=== PATIENT | female | born 1975 | race Caucasian/White ===

== ENCOUNTER 2019-02-22 01:40 | Emergency (ER) | payer OTHER ==
[~2019-02-22] VITALS: Ht 167.6 cm; Wt 90.7 kg
[2019-02-22 01:50] VITALS: BP 124/69
--- NOTE | 2019-02-22 01:50 | NUR ---
TO BED #06 AMBULATORY
--- NOTE | 2019-02-22 01:59 | NUR ---
Dr. Plascencia evaluating patient at bedside.
[2019-02-22] MEDS ORDERED: NACL 0.9% 1,000 ML IV ONE (02:04)
[2019-02-22] MEDS ORDERED: METOCLOPRAMIDE 10 MG/2 ML INJ VIAL IVP ONE (02:05)
[2019-02-22] MEDS ORDERED: diphenhydrAMINE 50 MG/ML VIAL IVP ONE (02:05)
--- NOTE | 2019-02-22 02:10 | NUR ---
MEDICATED , PER ERMDS ORDER, PATIENT TOLERATED WELL.
--- NOTE | 2019-02-22 03:00 | NUR ---
DIPTI RE EVALUATED THE PATIENT AND FOR DISCHARGE, CALLED UP
[2019-02-22 03:18] VITALS: BP 128/80
--- NOTE | 2019-02-22 03:18 | NUR ---
Patient discharged with v/s stable. Written and verbal after care instructions given and explained. Patient alert, oriented and verbalized understanding of instructions. Ambulatory with steady gait. All questions addressed prior to discharge. ID band removed. Patient advised to follow up with PMD. Rx of CIPRO 500MG, NORCO 5 MG-325MG given. Patient educated on indication of medication including possible reaction and side effects. Opportunity to ask questions provided and answered.
== END 2019-02-22 03:18 | disposition home or self-care (01) ==
LOC: MED 01:40
DX: N39.0 Urinary tract infection, site not specified (principal); R51 Headache; R07.0 Pain in throat; F17.210 Nicotine dependence, cigarettes, uncomplicated; Z79.1 Long term (current) use of non-steroidal anti-inflammatories (NSAID)
CPT/HCPCS: 81002; 96374; 96375; 99283; J1200; J2765; J7030

== ENCOUNTER 2019-10-22 11:07 | Emergency (ER) | payer OTHER ==
[~2019-10-22] VITALS: Ht 165.1 cm; Wt 88.5 kg
[2019-10-22 11:13] VITALS: BP 157/92
--- NOTE | 2019-10-22 11:20 | NUR ---
PT AMBULATED TO ED BED 02
--- NOTE | 2019-10-22 11:26 | NUR ---
44/F C/O BILATERAL FOOT PAIN/DISCOMFORTX 5 DAYS AND BLE SWELLING X 3 DAYS. BLE 2+ PITTING EDEMA. DENIES SOB. 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 STATE WOKE UP ONE MORNING WITH THE SWELLING, DENIES LEGS BEING NORMALLY SWOLLEN. NOTED WITH REDNESS TO BLE, L>Beata BARBER AT THIS TIME. DENIES PMH Addendum: 10/22/19 at 1132 by YOLIS STATES HEAVINESS TO BLE.
--- NOTE | 2019-10-22 11:37 | NUR ---
DR. DOWNS EVALUATING PT AT BEDSIDE.
[2019-10-22] MEDS ORDERED: KETOROLAC 30 MG/ML VIAL IM ONE (11:50)
--- NOTE | 2019-10-22 11:51 | NUR ---
XRAY AT BEDSIDE
[2019-10-22 12:14] LABS: BASOPHILS # (AUTO) 0.1 K/uL (0.00-0.22); BASOPHILS % (AUTO) 0.7 % (0.0-2.0); EOSINOPHILS # (AUTO) 0.4 K/uL (0-0.4); EOSINOPHILS % (AUTO) 3.2 % (0.0-4.0); HEMATOCRIT 39.7 % (36-48); HEMOGLOBIN 13.3 g/dL (12.0-16.0); LYMPHOCYTES # (AUTO) 4.8 K/uL (2.5-16.5); LYMPHOCYTES % (AUTO) 37.6 % (20.5-51.1); MEAN CORPUSCULAR HEMOGLOBIN 30 pg (27-31); MEAN CORPUSCULAR HGB CONC 34 g/dL (33-37); MEAN CORPUSCULAR VOLUME 89.7 fL (80-94); MONOCYTES % (AUTO) 7.7 % (1.7-9.3); NEUTROPHILS # (AUTO) 6.5 K/uL (1.8-7.7); NEUTROPHILS % (AUTO) 50.8 % (42.2-75.2); PLATELET COUNT (AUTO) 317 K/uL (140-450); RED BLOOD CELL COUNT(AUTO) 4.42 MIL/uL (4.20-5.40); WHITE BLOOD COUNT (AUTO) 12.8 K/uL (4.8-10.8)
[2019-10-22 12:23] LABS: ANION GAP 12.2 (8-16); CARBON DIOXIDE 26.7 mmol/L (21-32); CREATININE 0.9 mg/dL (0.6-1.3); POTASSIUM 3.9 mmol/L (3.5-5.1)
[2019-10-22 12:35] LABS: ALBUMIN 3.4 g/dL (3.4-5.0); TOTAL BILIRUBIN 0.1 mg/dL (0.0-1.0)
[2019-10-22 12:54] VITALS: BP 122/71
== END 2019-10-22 12:54 | disposition home or self-care (01) ==
LOC: MED 11:07
DX: R60.0 Localized edema (principal); G43.909 Migraine, unspecified, not intractable, without status migrainosus
CPT/HCPCS: 36415; 71045; 80053; 83880; 85025; 96372; 99284; J1885; Q0092

== ENCOUNTER 2020-07-27 18:27 | Emergency (ER) | payer OTHER ==
[~2020-07-27] VITALS: Ht 167.6 cm; Wt 91.6 kg
[2020-07-27 18:31] VITALS: BP 138/97
[2020-07-27] MEDS ORDERED: KETOROLAC 60 MG/2 ML VIAL IM ONE (18:45)
[2020-07-27] MEDS ORDERED: methocarbamoL 500 MG TAB PO SCH (18:45)
[2020-07-27] MEDS ORDERED: CRUSHER, PILL MC ONE (19:22)
[2020-07-27] MEDS ORDERED: MORPHINE SULFATE 4 MG/ML SYR IM ONE (19:50)
[2020-07-27] MEDS ORDERED: ONDANSETRON 4 MG ODT ONE (19:58)
[2020-07-27] MEDS ORDERED: ONDANSETRON 4 MG ODT PO ONE (20:00)
[2020-07-27 21:38] VITALS: BP 132/89
== END 2020-07-27 21:39 | disposition home or self-care (01) ==
LOC: MED 18:27
DX: M54.5 Low back pain (principal); F17.210 Nicotine dependence, cigarettes, uncomplicated; Z71.6 Tobacco abuse counseling; Z98.890 Other specified postprocedural states
CPT/HCPCS: 72110; 96372; 99284; J1885; J2270; Q0162

== ENCOUNTER 2021-09-25 08:01 | Inpatient (IN) | payer OTHER, SELFPAY ==
[~2021-09-25] VITALS: Ht 162.6 cm; Wt 88.6 kg
[2021-09-25 08:07] VITALS: BP 116/78
--- NOTE | 2021-09-25 08:12 | NUR ---
PATIENT AMBULATED TO BED 8.
[2021-09-25] MEDS ORDERED: KETOROLAC 15 MG/ML VIAL IVP ONE (08:40)
[2021-09-25] MEDS ORDERED: NACL 0.9% 1,000 ML IV ONE ×2 (08:40→09:40)
--- NOTE | 2021-09-25 08:40 | NUR ---
46 Y/O F HERE WITH R LEG REDNESS AND SWELLING. HER PAIN IS 4/10 WHEN AT REST BUT MORE WHEN STANDING OR WALKING.
--- NOTE | 2021-09-25 08:47 | NUR ---
PATIENT GOING TO ULTRASOUND VIA WHEELCHAIR.
--- NOTE | 2021-09-25 09:04 | NUR ---
PATIENT BACK FROM XRAY.
[2021-09-25 09:29] LABS: HEMATOCRIT 38.7 % (36-48); HEMOGLOBIN 13.2 g/dL (12.0-16.0); MEAN CORPUSCULAR HEMOGLOBIN 30 pg (27-31); MEAN CORPUSCULAR HGB CONC 34 g/dL (33-37); MEAN CORPUSCULAR VOLUME 87.6 fL (80-94); PLATELET COUNT (AUTO) 396 K/uL (140-450); RED BLOOD CELL COUNT(AUTO) 4.41 MIL/uL (4.20-5.40); RED CELL DISTRIBUTION WIDTH 13.1 % (11.6-13.7); WHITE BLOOD COUNT (AUTO) 14.9 K/uL (4.8-10.8)
[2021-09-25] MEDS ORDERED: VANCOMYCIN 1,000 MG in DEXTROSE 5% 250 ML IV ONE (09:40)
[2021-09-25] MEDS ORDERED: CEFEPIME 1,000 MG in DEXTROSE 5% 50 ML IV ONE (09:40)
[2021-09-25] MEDS ORDERED: CEFEPIME 1,000 MG VIAL ONE (09:45)
[2021-09-25] MEDS ORDERED: VANCOMYCIN 1,000 MG VIAL ONE (09:46)
[2021-09-25 09:48] LABS: EOSINOPHILS % (MANUAL) 1 % (0-4); LYMPHOCYTES % (MANUAL) 23 % (20-46); MONOCYTES % (MANUAL) 4 % (5-12)
[2021-09-25 10:25] LABS: ANION GAP 12.7 (8-16); CARBON DIOXIDE 26.7 mmol/L (21-32); CREATININE 0.9 mg/dL (0.6-1.3); POTASSIUM 3.4 mmol/L (3.5-5.1)
[2021-09-25] MEDS ORDERED: PAX10 PO (10:49)
[2021-09-25] MEDS ORDERED: CLON1TAB PO (10:49)
[2021-09-25] MEDS ORDERED: ACETAMINOPHEN 325 MG TAB PO PRN (10:55)
[2021-09-25] MEDS ORDERED: VANCOMYCIN PER PHARMACY MC PRN (10:55)
[2021-09-25] MEDS ORDERED: MAG SULF 2000 MG/WATER PREMIX 50 ML IV PRN (10:55)
[2021-09-25] MEDS ORDERED: KCL 20 MEQ/WATER INJ PREMIX 200 ML IV PRN (10:55)
[2021-09-25] MEDS ORDERED: POTASSIUM CHLORIDE 10 MEQ TABER PO PRN (10:55)
[2021-09-25] MEDS ORDERED: ONDANSETRON 4 MG/2 ML VIAL IVP PRN (10:55)
[2021-09-25] MEDS ORDERED: MAGNESIUM OXIDE 400 MG TAB PO PRN (10:55)
--- NOTE | 2021-09-25 11:06 | NUR ---
RAZA SWAB WAS DONE AND TAKEN TO THE LAB.
--- NOTE | 2021-09-25 11:07 | NUR ---
46 Y/O FEMALE C/O RIGHT LOWER LEG REDNESS & SWELLING X 4 DAYS. DENIES FEVER/CHILLS. DENIES N/V/D. ON ASSESSMENT NOTED REDNESS AND SWELLING TO RLE, WARM TO TOUCH. NO DISCHARGE. PMH: HTN NKA
--- NOTE | 2021-09-25 12:00 | NUR ---
PATIENT EATING LUNCH, DAUGHTHER AT BEDSIDE.
[2021-09-25] MEDS ORDERED: cefTRIAXone 1,000 MG VIAL ONE (12:36)
--- NOTE | 2021-09-25 12:40 | NUR ---
URINE COLLECTED AT THIS TIME AND SENT TO LAB
--- NOTE | 2021-09-25 13:25 | NUR ---
GAVE REPORT TO ANA ROSA LIU FOR PENDING ADMISSION. ETA 10MINUTES.
[2021-09-25] MEDS ORDERED: HYDROXYZINE HYDROCHLORIDE 10 MG TAB PO ONE (13:35)
[2021-09-25 13:45] VITALS: BP 101/56
--- NOTE | 2021-09-25 13:45 | NUR ---
PT ARRIVED FROM THE ED BY WHEELCHAIR WITH DAUGHTER AT BEDSIDE. PT CRYING REPORTING SEVERE MIGRAINE. UPON LOOKING AT EMAR, MD ORDERED MEDICATION, MAVERICK MEDICATION ADMINISTERED PER MD ORDER. ALL ADMISSION QUESTIONS ASKED. PT IS ALERT AND ORIENTED X4. PT IS ON ROOM AIR WITH CHEST RISING AND FALLING EVEN AND UNLABORED, LUNGS CLEAR. PT VITAL SIGNS TAKEN AND ARE STABLE. PT RIGHT LOWER EXTREMITY HAS ERYTHEMA, WARMTH, AND SWELLING. NO OPEN WOUNDS. PT HAS A LEFT AC 30 G SALINE LOCK THAT IS PATENT AND INTACT. PT EDUCATED ON SAFETY MEASURES AND CALL LIGHT WHICH IS IN REACH. WILL CONTINUE TO MONITOR.
--- NOTE | 2021-09-25 13:47 | NUR ---
Patient will be admitted to care of DR. MCARTHUR. Admited to [facility]. Will go to room 119. Belongings list completed. Report to ANA ROSA LIU.
--- NOTE | 2021-09-25 14:09 | NUR ---
MRSA SWAB HAS BEEN COLLECTED AND SENT TO LAB
--- NOTE | 2021-09-25 15:52 | NUR ---
PT RESTING IN BED WITH NO ACUTE S/S OF DISTRESS. ALL SAFETY MEASURES IN PLACE, CALL LIGHT WITHIN REACH. WILL CONTINUE TO MONITOR.
[2021-09-25 16:00] VITALS: BP 106/68
[2021-09-25 16:35] LABS: BARBITURATE, URINE NEGATIVE ng/ml (NEG <=200); BENZODIAZEPINE, URINE NEGATIVE ng/mL (NEG <=200); COCAINE, URINE NEGATIVE ng/mL (NEG <=300)
[2021-09-25 16:36] LABS: CANNABINOID, URINE POSITIVE ng/mL (NEG <=50); OPIATE, URINE POSITIVE ng/mL (NEG <=2000); PHENCYCLIDINE SCREEN,URINE NEGATIVE ng/mL (NEG <=25)
[2021-09-25] MEDS ORDERED: SUMAtriptan succinate 25 MG TAB PO PRN (17:05)
--- NOTE | 2021-09-25 18:01 | NUR ---
The patient's care was reviewed and supervised by Amie Ball RN.
--- NOTE | 2021-09-25 18:28 | NUR ---
PT RESTING IN BED WITH NO ACUTE S/S OF DISTRESS. ALL SAFETY MEASURES IN PLACE, CALL LIGHT WITHIN REACH. WILL CONTINUE TO MONITOR.
--- NOTE | 2021-09-25 18:40 | NUR ---
ALL NEEDS HAVE BEEN MET THROUGHOUT SHIFT. PT REMAINED STABLE. PT WILL BE ENDORSED TO SENIOR RELIABILITY ENGINEER NURSE.
--- NOTE | 2021-09-25 19:10 | NUR ---
RECEIVED REPORT FROM MORNING SHIFT FOR CONTINUITY OF CARE. PATIENT IS STABLE IN BED. A&OX4. VERBALLY RESPONSIVE AND ABLE TO COMMUNICATE NEEDS. DENIES PAIN AT THIS TIME. NO APPARENT S/SX OF ACUTE DISTRESS. RESPIRATIONS EVEN AND UNLABORED. ON RA WITH AN O2 SAT OF 98%. LEFT AC 20G SL PATENT/INTACT. PATIENT IS CONTINENT. PLAN OF CARE AND WHITE COMMUNICATION BOARD UPDATED. BED IN LOW/LOCKED POSITION. CALL LIGHT WITHIN REACH. ENCOURAGE PATIENT TO CALL FOR ANY NEEDS/ASSISTANCE. WILL CONTINUE TO MONITOR.
--- NOTE | 2021-09-25 20:00 | NUR ---
Patient's Plan of Care was discussed and reviewed with JONATAN WORTHINGTON.
--- NOTE | 2021-09-25 21:10 | NUR ---
PATIENT VERBALIZED SHE DOES NOT FEEL COMFORTABLE. PROVIDED PILLOWS AND REPOSITIONED FOR COMFORT. PATIENT VERBALIZED SHE FEELS MUCH BETTER. PATIENT DENIES PAIN AT THIS TIME. RESPIRATIONS EVEN AND UNLABORED. NO APPARENT S/SX OF ACUTE DISTRESS. WHITE BOARD COMMUNICATION UPDATED. ALL SAFETY MEASURES IN PLACE. CALL LIGHT WITHIN REACH. WILL CONTINUE TO MONITOR.
[2021-09-25] MEDS ORDERED: VANCOMYCIN 1,000 MG in DEXTROSE 5% 250 ML IV SCH (22:00)
[2021-09-25] MEDS ORDERED: ceFAZolin 1,000 MG VIAL ONE (22:29)
--- NOTE | 2021-09-25 23:10 | NUR ---
CHECKED PATIENT. STABLE AND ASLEEP IN RIGHT SIDE-LYING POSITION. CHEST RISING AND FALLING. RESPIRATIONS EVEN AND UNLABORED. NO APPARENT S/SX OF ACUTE DISTRESS. WHITE BOARD COMMUNICATION UPDATED. ALL SAFETY MEASURES IN PLACE. CALL LIGHT WITHIN REACH. WILL CONTINUE TO MONITOR.
--- NOTE | 2021-09-26 01:10 | NUR ---
ROUNDED ON PATIENT. STABLE AND ASLEEP. CHEST RISING AND FALLING. RESPIRATIONS EVEN AND UNLABORED. NO APPARENT S/SX OF ACUTE DISTRESS. WHITE BOARD COMMUNICATION UPDATED. ALL SAFETY MEASURES IN PLACE. CALL LIGHT WITHIN REACH. WILL CONTINUE TO MONITOR.
--- NOTE | 2021-09-26 03:10 | NUR ---
CHECKED PATIENT. STABLE AND ASLEEP. CHEST RISING AND FALLING. RESPIRATIONS EVEN AND UNLABORED. NO APPARENT S/SX OF ACUTE DISTRESS. WHITE BOARD COMMUNICATION UPDATED. ALL SAFETY MEASURES IN PLACE. CALL LIGHT WITHIN REACH. WILL CONTINUE TO MONITOR.
[2021-09-26 04:00] VITALS: BP 120/66
[2021-09-26 05:54] LABS: BASOPHILS % (AUTO) 0.3 % (0.0-2.0); EOSINOPHILS # (AUTO) 0.3 K/uL (0-0.4); EOSINOPHILS % (AUTO) 2.2 % (0.0-4.0); HEMATOCRIT 36.4 % (36-48); HEMOGLOBIN 12.2 g/dL (12.0-16.0); LYMPHOCYTES # (AUTO) 3.1 K/uL (2.5-16.5); LYMPHOCYTES % (AUTO) 26.3 % (20.5-51.1); MEAN CORPUSCULAR HEMOGLOBIN 30 pg (27-31); MEAN CORPUSCULAR HGB CONC 34 g/dL (33-37); MEAN CORPUSCULAR VOLUME 88.2 fL (80-94); MONOCYTES % (AUTO) 8.3 % (1.7-9.3); NEUTROPHILS # (AUTO) 7.4 K/uL (1.8-7.7); NEUTROPHILS % (AUTO) 62.9 % (42.2-75.2); PLATELET COUNT (AUTO) 358 K/uL (140-450); RED BLOOD CELL COUNT(AUTO) 4.13 MIL/uL (4.20-5.40); RED CELL DISTRIBUTION WIDTH 13.4 % (11.6-13.7); WHITE BLOOD COUNT (AUTO) 11.8 K/uL (4.8-10.8)
[2021-09-26 06:17] LABS: ALBUMIN 2.4 g/dL (3.4-5.0); ANION GAP 12.1 (8-16); CARBON DIOXIDE 26.2 mmol/L (21-32); CREATININE 0.8 mg/dL (0.6-1.3); MAGNESIUM 2.1 mg/dL (1.8-2.4); POTASSIUM 3.3 mmol/L (3.5-5.1); TOTAL BILIRUBIN 0.3 mg/dL (0.0-1.0)
[2021-09-26 06:18] LABS: CHOL/HDL RATIO 7.1 (1-4.5)
--- NOTE | 2021-09-26 07:05 | NUR ---
ENDORSED PATIENT TO MORNING SHIFT FOR CONTINUITY OF CARE. PATIENT IS STABLE.
--- NOTE | 2021-09-26 07:10 | NUR ---
RECEIVED REPORT FROM VENETIAN BLIND WORKER NURSE FOR CONTINUITY OF CARE. PT STABLE. NO S/S OF DISTRESS. BREATHING SYMMETRICAL. CALL LIGHT IN REACH. ALL SAFETY MEASURES IN PLACE.
--- NOTE | 2021-09-26 08:00 | NUR ---
PT ASSISTED TO RESTROOM. PT TRANSPORTED TO IMAGING. ALL SAFETY MEASURES IN PLACE Addendum: 09/26/21 at 1059 by Erika Lanier RN RN PT REFUSED BED ARAMBULA AND BEDSIDE COMMODE
--- NOTE | 2021-09-26 08:13 | NUR ---
PATIENT HAS BEEN SCREENED AND CATEGORIZED LOW NUTRITION RISK. PATIENT WILL BE SEEN WITHIN 7 DAYS OF ADMISSION. 10/01/[address]
--- NOTE | 2021-09-26 09:00 | NUR ---
PT TRANSPORTED BACK TO [facility]. PT INSTRUCTED TO DRINK 2-3 CUPS OF WATER BEFORE NEXT SET OF IMAGES. CALL LIGHT IN REACH. ALL SAFETY MEASURES IN PLACE.
[2021-09-26] MEDS: ENOXAPARIN 40 MG/0.4 ML SYR SUBQ SCH (09:24)
--- NOTE | 2021-09-26 10:57 | NUR ---
PT TRANSPORTED BACK TO IMAGING. NO S/S OF DISTRESS. ALL SAFETY MEASURES IN PLACE.
--- NOTE | 2021-09-26 11:49 | NUR ---
PT RETURNED TO [facility]. PT RESTING IN BED. PT STABLE. CALL LIGHT IN REACH. ALL SAFETY MEASURES IN PLACE. PT REPORTS PAIN IN RLE 06/13. WILL MEDICATE AND REASSESS Addendum: 09/26/21 at 1324 by Erika Lanier RN RN RETURNED TO MEDICATE PT FOR PAIN. PT SLEEPING, NO MEDICATION GIVEN.
[2021-09-26 12:00] VITALS: BP 117/57
--- NOTE | 2021-09-26 13:23 | NUR ---
PT AWAKE. PT STABLE. NO S/S OF DISTRESS. BREATHING SYMMETRICAL. CALL LIGHT IN REACH. ALL SAFETY MEASURES IN PLACE. PT PAIN REDUCED WITHOUT MEDICATION. 03/13
--- NOTE | 2021-09-26 15:36 | NUR ---
PT RESTING IN BED, EYES CLOSED. NO S/S OF DISTRESS. BREATHING SYMMETRICAL. CALL LIGHT IN REACH. ALL SAFETY MEASURES IN PLACE.
[2021-09-26 16:00] VITALS: BP 116/60
--- NOTE | 2021-09-26 17:27 | NUR ---
PT RESTING IN BED, EYES CLOSED. NO S/S OF DISTRESS. BREATHING SYMMETRICAL. CALL LIGHT IN REACH. ALL SAFETY MEASURES IN PLACE. IV SALINE LOCKED
[2021-09-26] MEDS: HYDROcodone/APAP 5/325 MG 1 TAB TAB PO PRN (17:51)
--- NOTE | 2021-09-26 17:51 | NUR ---
PT STATED EXPERIENCING PAIN 6/10 IN RLE. PT STABLE. ASSISTED PT TO RESTROOM . PT MEDICATED PER MD ORDERS. PT VERBALIZED UNDERSTANDING OF EDUCATION. CALL LIGHT IN REACH. ALL SAFETY MEASURES IN PLACE. FAMILY AT BEDSIDE
--- NOTE | 2021-09-26 18:37 | NUR ---
PT RESTING IN BED. FAMILY AT BEDSIDE. DINNER AT BEDSIDE. NO S/S OF DISTRESS. BREATHING SYMMETRICAL. CALL LIGHT IN REACH. ALL SAFETY MEASURES IN PLACE.
--- NOTE | 2021-09-26 20:00 | NUR ---
PATIENT RECEIVED IN BED ASLEEP, NO DISTRESS. RN DID NOT BOTHER TO WAKE HER UP.
--- NOTE | 2021-09-26 21:00 | NUR ---
DUE IV ATB MEDICATION WAS GIVEN TOLERATING WELL.
[2021-09-27] VITALS: BP 94/66
--- NOTE | 2021-09-27 | NUR ---
PATIENT WAS CALMLY ASLEEP
--- NOTE | 2021-09-27 04:48 | NUR ---
PATIENT COMPLAINT OF ANXIETY ATTACK. BUT, PATIENT HAS NO PRN ANTI ANXIETY. RN EXPLAINED TO THE PATIENT THAT HE STILL NEEDS TO CALL THE M.D TO GET AN ORDER OF AN ANTI ANXIETY MEDICATION. RN CALLED THE OUT OF OFFICE HOUR EXCHANGE. PROMISE TO PAGE DR. OSBORNE THE COVERING MD FOR DR. MARTEL. STILL WAITING FOR CALL BACK.
--- NOTE | 2021-09-27 04:54 | NUR ---
DUE IV ATB ADMINISTERED, TOLERATING WELL.
[2021-09-27] MEDS ORDERED: ALPRAZolam 0.25 MG TAB PO ONE (05:40)
[2021-09-27] MEDS: HYDROcodone/APAP 5/325 MG 1 TAB TAB PO PRN ×2 (07:40→23:04)
--- NOTE | 2021-09-27 07:43 | NUR ---
09/26/211999 REVIEWED, WILL CONTINUE WITH CURRENT PLAN OF CARE. MNURALD
--- NOTE | 2021-09-27 07:55 | NUR ---
Patient awake, alert and had complaints of pain, anxiety. Medication administered, see chart.
[2021-09-27 08:00] VITALS: BP 106/56
[2021-09-27] MEDS ORDERED: ALPRAZolam 0.25 MG TAB ONE (08:05)
[2021-09-27] MEDS: ENOXAPARIN 40 MG/0.4 ML SYR SUBQ SCH (08:12)
[2021-09-27 09:34] LABS: BASOPHILS # (AUTO) 0.1 K/uL (0.00-0.22); BASOPHILS % (AUTO) 0.4 % (0.0-2.0); EOSINOPHILS # (AUTO) 0.3 K/uL (0-0.4); EOSINOPHILS % (AUTO) 2.3 % (0.0-4.0); HEMATOCRIT 34.7 % (36-48); HEMOGLOBIN 11.8 g/dL (12.0-16.0); LYMPHOCYTES % (AUTO) 28.2 % (20.5-51.1); MEAN CORPUSCULAR HEMOGLOBIN 30 pg (27-31); MEAN CORPUSCULAR HGB CONC 34 g/dL (33-37); MEAN CORPUSCULAR VOLUME 87.5 fL (80-94); MONOCYTES # (AUTO) 1.1 K/uL (0.8-1.0); MONOCYTES % (AUTO) 7.9 % (1.7-9.3); NEUTROPHILS # (AUTO) 8.6 K/uL (1.8-7.7); NEUTROPHILS % (AUTO) 61.2 % (42.2-75.2); PLATELET COUNT (AUTO) 387 K/uL (140-450); RED BLOOD CELL COUNT(AUTO) 3.96 MIL/uL (4.20-5.40); RED CELL DISTRIBUTION WIDTH 13.2 % (11.6-13.7); WHITE BLOOD COUNT (AUTO) 14.1 K/uL (4.8-10.8)
[2021-09-27 09:52] LABS: ALBUMIN 2.3 g/dL (3.4-5.0); ANION GAP 12.7 (8-16); CREATININE 0.7 mg/dL (0.6-1.3); MAGNESIUM 2.3 mg/dL (1.8-2.4); POTASSIUM 3.7 mmol/L (3.5-5.1); TOTAL BILIRUBIN 0.2 mg/dL (0.0-1.0)
--- NOTE | 2021-09-27 14:06 | NUR ---
DC PLANNING: THE PATIENT ADMITTED FROM HOME THROUGH THE ER WITH C/O RIGHT LEG REDNESS AND SWELLING X 1 WEEK. IMAGING RULED OUT OSTEOMYELITIS AND CONFIRMED CELLULITIS. THE PATIENT WAS STARTED ON IV ABX, ID WAS CONSULTED FOR MANAGEMENT. MARY SPOKE WITH THE PATIENT AT BEDSIDE, CONFIRMED THAT SHE LIVES IN A SINGLE STORY HOUSE WITH FRIENDS AND IS INDEPENDENT IN ALL ACTIVITIES. SHE HAS NO H/O HOME HEALTH OR DME USE AND IS EMPLOYED. THE PATIENT SEES HER PCP REGULARLY AND DOES INTEND TO FOLLOW UP WITH HIM IN THE NEXT WEEK. THE DISCHARGE PLAN IS FOR THE PATIENT TO RETURN HOME WHEN CLINICALLY STABLE, POSSIBLY TOMORROW PER THE ATTENDING MD. MARY WILL FOLLOW FOR NEEDS. Addendum: 09/27/21 at 1708 by Marleen Barkley CM DC PLANNING PATIENT IS A 46-YEAR-OLD FEMALE ADMITTED IN THE [facility]/ED ON 09/25/2021 DUE TO MIGRAINE HEADACHES SINCE 09/21/2021 AND INFECTED BLISTER ON RIGTH FOOT. DAPHNE MET WITH PATIENT AND HER ADULT DAUGHTER PAPO BRYANT AT BEDSIDE TO DISCUSS AND GATHER HER COLLATERAL INFORMATION. PATIENT REPORTED LIVING AT HOME WITH SOME ROOMMATES AND STATED THAT HER DAUGHTER PAPO AND HER SISTER AMIRAH JOHNSTON ARE HER EMERGENCY CONTACTS. PER PATIENT SHE DO NOT HAVE ADVANCE DIRECTIVES, AND PATIENT WAS INTERESTED ON A.D. INF. PACKET PROVIDED BY DURING THE VISIT. PATIENT REPORTED NOT HAVING ANY ISSUES GETTING OR TAKING HER MEDICATIONS FROM THE [facility] IN [place]. PATIENT STATED NOT HAVING OR NEEDING DME AT HOME AND BEEN ACTIVE AND INDEPENDENT AT HOME. PATIENT HAVING A GOOD RELATIONSHIP WITH HER PCP. DAPHNE INFORMED PATIENT ABOUT HER ALREADY SCHEDULED APPOINTMENT MADE BY THESE CAKE WRAPPER. PATIENT AGREED TO ATTEND TO HER FOLLOW UP APPOINTMENT WITH LAURENCE LARRY ON 10/04/2021 AT 10;45AM. DAPHNE DISCUSSED WITH PT. THE IMPORTANCE OF FOLLOWING UP WITH HER SCHEDULED APPOINTMENT. PATIENT AGREED TO ATTEND AND REPORTED TO DAPHNE THAT SHE WILL BE ASSISTED BY HER DAUGHTER OR SISTER WITH TRANSPORTATION BACK HOME WHEN SHE IS READY TO DC FROM [facility]. DAPHNE THANK HER FOR THE INF. AND LEFT HER ROOM. SW WILL FOLLOW UP NEEDED. Addendum: 09/27/21 at 1751 by Marleen Barkley CM DC PLANNING DAPHNE CALLED PATIENT'S PCP OFFICE AT AND SPOKE TO MIYA TO SCHEDULED A FOLLOW UP APPOINTMENT FOR PATIENT AFTER DC FROM [facility]. MIYA SCHEDULED PATIENT'S FOLLOW UP APPOINTMENT FOR 10/04/2021 AT 10:45 AM WITH MD LAURENCE EDMONDSON. DAPHNE MET WITH PATIENT AT BEDSIDE AND PROVIDED HER WITH HER APPOINTMENT INFORMATION SCHEDULED FOR 10/04/2021. DAPHNE HANDED APPOINTMENT NOTE TO PATIENT WITH ADDRESS, DATE AND TIME OF APPOINTMENT. PATIENT WAS AWAKE AND ALERT AND THANK THESE CAKE WRAPPER FOR THE INFORMATION.
[2021-09-27 16:00] VITALS: BP 111/46
--- NOTE | 2021-09-27 19:40 | NUR ---
RECD REPORT FROM CHARGE NURSE PARTHA. PATIENT IS RESTING IN BED, AWAKE, A/OX4. RESPIRATION EVEN AND UNLABORED. RIGHT LOWER EXTREMITY WITH REDNESS AND SWELLING, ELEVATED ON A PILLOW. SKIN IS WARM AND INTACT. ABLE TO AMBULATE TO THE BR. ON IV ANTIBIOTICS. MEDICATIONS FOR THE NIGHT DISCUSSED WITH PATIENT. VERBALIZED UNDERSTANDING. PAIN IN THE RIGHT LE, 1, STATED TOLERABLE. WILL CONTINUE TO MONITOR AND MEDICATE PER MD ORDER.
--- NOTE | 2021-09-27 19:45 | NUR ---
Patient's Plan of Care was discussed and reviewed with JONATAN PACE.
--- NOTE | 2021-09-27 21:00 | NUR ---
RESTING IN BED, RESPIRATION EVEN AND UNLABORED. REQUEST FOR SNACK FOR THE NIGHT GIVEN.
--- NOTE | 2021-09-27 22:30 | NUR ---
ASSISTED OUT OF BED TO GO TO THE BR TO VOID, BACK TO BED AFTER VOIDING. WITH DIFFICULTY AMBULATING DUE TO THE SWOLLEN RIGHT LOWER EXTREMITY.
[2021-09-28] VITALS: BP 106/65
--- NOTE | 2021-09-28 00:30 | NUR ---
SLEEPING COMFORTABLY IN BED. RESPIRATION EVEN AND UNLABORED.
--- NOTE | 2021-09-28 01:40 | NUR ---
ENDORSED TO ANA ROSA LEA FOR CONTINUITY OF CARE.
--- NOTE | 2021-09-28 01:41 | NUR ---
RECEIVED REPORT FROM JG. PATIENT OBSERVED LAYING IN BED APPEARS TO BE ASLEEP. CHEST RISE AND FALL NOTED. NO S/SX OF RESP DISTRESS ON RA. PT DX R LEG CELLULITIS. WILL ASSESS AT LATER TIME WHEN PT IS AWAKE. PER REPORT PT WITH R LEG EDEMA AND REDNESS BUT SKIN INTACT. IV ON LAC 20G TKO. PT AMBULATORY W/ ASSIST. PT ON IV ABX ANCEF Q8H. PT IS ON STANDARD ISOLATION. CALL LIGHT IS WITHIN REACH. WILL CONTINUE TO MONITOR.
[2021-09-28 04:00] VITALS: BP 124/66
--- NOTE | 2021-09-28 04:00 | NUR ---
VITAL SIGNS ARE WITHIN NORMAL LIMITS. ALL SAFETY MEASURES ARE IN PLACE. WILL CONTINUE TO MONITOR.
[2021-09-28 07:08] LABS: ALBUMIN 2.4 g/dL (3.4-5.0); ANION GAP 13.2 (8-16); CARBON DIOXIDE 26.5 mmol/L (21-32); CREATININE 0.7 mg/dL (0.6-1.3); MAGNESIUM 2.4 mg/dL (1.8-2.4); POTASSIUM 3.7 mmol/L (3.5-5.1); TOTAL BILIRUBIN 0.1 mg/dL (0.0-1.0)
--- NOTE | 2021-09-28 07:17 | NUR ---
GAVE BEDSIDE REPORT TO DAY RN. PT ENDORSED IN STABLE CONDITION.
[2021-09-28 07:19] LABS: BASOPHILS # (AUTO) 0.1 K/uL (0.00-0.22); BASOPHILS % (AUTO) 0.5 % (0.0-2.0); EOSINOPHILS # (AUTO) 0.4 K/uL (0-0.4); EOSINOPHILS % (AUTO) 2.8 % (0.0-4.0); HEMATOCRIT 35.3 % (36-48); LYMPHOCYTES # (AUTO) 4.1 K/uL (2.5-16.5); LYMPHOCYTES % (AUTO) 30.3 % (20.5-51.1); MEAN CORPUSCULAR HEMOGLOBIN 30 pg (27-31); MEAN CORPUSCULAR HGB CONC 34 g/dL (33-37); MEAN CORPUSCULAR VOLUME 87.7 fL (80-94); MONOCYTES % (AUTO) 7.2 % (1.7-9.3); NEUTROPHILS # (AUTO) 8.1 K/uL (1.8-7.7); NEUTROPHILS % (AUTO) 59.2 % (42.2-75.2); PLATELET COUNT (AUTO) 433 K/uL (140-450); RED BLOOD CELL COUNT(AUTO) 4.02 MIL/uL (4.20-5.40); WHITE BLOOD COUNT (AUTO) 13.7 K/uL (4.8-10.8)
--- NOTE | 2021-09-28 07:47 | NUR ---
Patient awake, alert and oriented. Continues to have swelling and redness to right lower extremity. Safety co measures in place and patient has no further needs.
[2021-09-28] MEDS ORDERED: CEPH-588 PO (08:35)
[2021-09-28] MEDS: ENOXAPARIN 40 MG/0.4 ML SYR SUBQ SCH (08:36)
[2021-09-28 08:47] VITALS: BP 109/59
--- NOTE | 2021-09-28 10:00 | NUR ---
Patient discharged and was given information on medications, follow ups and when to come back to hospital if she has increased pain, swelling, redness and tenderness to right foot that worsens. All questions regarding discharge answered.
== END 2021-09-28 11:05 | disposition home or self-care (01) | DRG 383 ==
LOC: MED 08:01 → MMU 11:53 → MTU 13:23
PROVIDERS: ADMIT Internal Medicine; ATTEND Internal Medicine
DX: L03.115 Cellulitis of right lower limb (principal); E44.1 Mild protein-calorie malnutrition; F15.90 Other stimulant use, unspecified, uncomplicated; F12.90 Cannabis use, unspecified, uncomplicated; G43.909 Migraine, unspecified, not intractable, without status migrainosus; Z20.822 Contact with and (suspected) exposure to COVID-19; Z68.33 Body mass index [BMI] 33.0-33.9, adult
CPT/HCPCS: 36415; 73590; 78300; 80048; 80053; 80202; 80305; 81025; 83036; 83735; 85025; 85651; 86140; 87040; 87081; 96361; 96365; 96367; 96375; 97163-GP; 97530; 99285; A9503; J0690; J0692; J0696; J1650; J1885; J3370; J7060

== ENCOUNTER 2021-10-04 21:01 | Emergency (ER) | payer OTHER, SELFPAY ==
[~2021-10-04 21:01] MED LIST: CEPH-588 PO; CLON1TAB PO; PAX10 PO
--- NOTE | 2021-10-04 21:05 | NUR ---
patient called to triage no response PATIENT LEFT WITHOUT BEING SEEN BY DR. FONG. NO FURTHER CARE PROVIDED FOR PATIENT.
--- NOTE | 2021-10-04 21:15 | NUR ---
CALLED FOR THE SECOND TIME, NO RESPONSE
--- NOTE | 2021-10-04 21:25 | NUR ---
CALLED FOR THE THIRD TIME , NO RESPONSE
== END 2021-10-04 21:05 | disposition left against medical advice (07) ==
LOC: MED 21:01
DX: Z53.21 Procedure and treatment not carried out due to patient leaving prior to being seen by health care provider (principal)

== ENCOUNTER 2021-10-12 15:20 | Emergency (ER) | payer OTHER, SELFPAY ==
[~2021-10-12] VITALS: Ht 165.1 cm; Wt 85.7 kg
[2021-10-12 15:36] VITALS: BP 136/90
--- NOTE | 2021-10-12 15:41 | NUR ---
PT AMB TO BED 8.
--- NOTE | 2021-10-12 16:15 | NUR ---
46 Y/O F REFFERD HERE FROM [facility] FOR INFECTION OR DVT OF R LEG. PT WAS HOSPITALIZES LAST MONTH FOR CELLULITIS HERE, WENT HOME WITH ANITBIOTICS AND NORCO. SHE STILL HAS 2 DAYS OF MEDS LEFT. R LEG LOOKS EDEMES AND RED. PT HAS NO PAIN WHILE AT REST BUT HIGH PAIN WHEN SHE MOVES OR PUTS PRESSURE ON THE LEG.
--- NOTE | 2021-10-12 16:18 | NUR ---
DR LIU AT BEDSIDE.
[2021-10-12] MEDS: LORazepam 0.5 MG TAB PO ONE (16:29)
--- NOTE | 2021-10-12 16:57 | NUR ---
US AT BEDSIDE
[2021-10-12] MEDS ORDERED: SULF-59 PO (18:16)
[2021-10-12] MEDS ORDERED: CEPH-588 PO (18:16)
[2021-10-12] MEDS ORDERED: cefTRIAXone 1,000 MG in LIDOCAINE MPF 1% 2.1 ML IM ONE (18:25)
[2021-10-12 18:30] VITALS: BP 137/85
--- NOTE | 2021-10-12 18:32 | NUR ---
Patient discharged with v/s stable. Written and verbal after care instructions given and explained. Patient alert, oriented and verbalized understanding of instructions. Ambulatory with steady gait. All questions addressed prior to discharge. ID band removed. Patient advised to follow up with PMD. Rx of CEPHALEXIN, SULFAMETHOXAZOLE/TRIMETHOPRIM given. Opportunity to ask questions provided and answered.
== END 2021-10-12 18:30 | disposition home or self-care (01) ==
LOC: MED 15:20
DX: L03.115 Cellulitis of right lower limb (principal); F12.90 Cannabis use, unspecified, uncomplicated; F41.9 Anxiety disorder, unspecified; Z79.899 Other long term (current) drug therapy
CPT/HCPCS: 93971; 99284; Q0092

== ENCOUNTER 2023-07-01 19:47 | Emergency (ER) | payer OTHER ==
[~2023-07-01] VITALS: Ht 167.6 cm; Wt 90.7 kg
[~2023-07-01 19:47] MED LIST changes: -CEPH-588 PO; +CITA10TA11 PO; +CLIN300C52 PO; +IMI25 PO
[2023-07-01 21:08] VITALS: BP 138/90; PULSE 94; RESP 20; TEMP 97.2; O2SAT 98
[2023-07-01] MEDS ORDERED: KETOROLAC 15 MG/ML VIAL IVP ONE (23:10)
[2023-07-01] MEDS ORDERED: FUROSEMIDE 40 MG/4 ML VIAL IVP SCH (23:10)
[2023-07-01 23:25] LABS: BASOPHILS # (AUTO) 0.1 K/uL (0.00-0.22); BASOPHILS % (AUTO) 0.9 % (0.0-2.0); EOSINOPHILS # (AUTO) 0.3 K/uL (0-0.4); HEMATOCRIT 38.1 % (36-48); HEMOGLOBIN 12.9 g/dL (12.0-16.0); LYMPHOCYTES # (AUTO) 4.5 K/uL (2.5-16.5); LYMPHOCYTES % (AUTO) 41.6 % (20.5-51.1); MEAN CORPUSCULAR HEMOGLOBIN 30 pg (27-31); MEAN CORPUSCULAR HGB CONC 34 g/dL (33-37); MONOCYTES # (AUTO) 0.8 K/uL (0.8-1.0); MONOCYTES % (AUTO) 7.9 % (1.7-9.3); NEUTROPHILS % (AUTO) 46.6 % (42.2-75.2); PLATELET COUNT (AUTO) 292 K/uL (140-450); RED BLOOD CELL COUNT(AUTO) 4.23 MIL/uL (4.20-5.40); RED CELL DISTRIBUTION WIDTH 13.2 % (11.6-13.7); WHITE BLOOD COUNT (AUTO) 10.7 K/uL (4.8-10.8)
[2023-07-01 23:59] LABS: ALBUMIN 3.3 g/dL (3.4-5.0); ANION GAP 7.7 (8-16); CALCIUM 8.4 mg/dL (8.5-10.1); CREATININE 0.9 mg/dL (0.6-1.3); POTASSIUM 3.7 mmol/L (3.5-5.1); TOTAL BILIRUBIN 0.2 mg/dL (0.0-1.0); TOTAL PROTEIN, SERUM 6.7 g/dL (6.4-8.2)
[2023-07-02 00:30] VITALS: BP 129/87; PULSE 77; RESP 18; O2SAT 99
[2023-07-02] MEDS ORDERED: CEPH-588 PO (01:28)
[2023-07-02] MEDS ORDERED: ACET-10509 PO (01:28)
[2023-07-02] MEDS ORDERED: FURO-572 PO (01:28)
== END 2023-07-02 01:51 | disposition home or self-care (01) ==
LOC: MED 19:47
DX: R60.9 Edema, unspecified (principal); Z79.899 Other long term (current) drug therapy
CPT/HCPCS: 36415; 71045; 80053; 83880; 85025; 96374; 96375; 99284; J1885; J1940; Q0092

== ENCOUNTER 2023-12-28 21:40 | Emergency (ER) | payer OTHER ==
[~2023-12-28] VITALS: Ht 165.1 cm; Wt 90.7 kg
[~2023-12-28 21:40] MED LIST changes: +ACET-10509 PO; +CEPH-588 PO; +FURO-572 PO
[2023-12-28 21:41] VITALS: BP 143/93; PULSE 105; RESP 16; TEMP 97.8; O2SAT 98
[2023-12-28 23:20] LABS: BASOPHILS # (AUTO) 0.1 K/uL (0.00-0.22); BASOPHILS % (AUTO) 1.2 % (0.0-2.0); EOSINOPHILS # (AUTO) 0.3 K/uL (0-0.4); EOSINOPHILS % (AUTO) 2.6 % (0.0-4.0); HEMOGLOBIN 13.3 g/dL (12.0-16.0); LYMPHOCYTES % (AUTO) 36.4 % (20.5-51.1); MEAN CORPUSCULAR HEMOGLOBIN 31 pg (27-31); MEAN CORPUSCULAR HGB CONC 34 g/dL (33-37); MONOCYTES # (AUTO) 1.2 K/uL (0.8-1.0); MONOCYTES % (AUTO) 10.7 % (1.7-9.3); NEUTROPHILS # (AUTO) 5.4 K/uL (1.8-7.7); NEUTROPHILS % (AUTO) 49.1 % (42.2-75.2); PLATELET COUNT (AUTO) 296 K/uL (140-450); RED BLOOD CELL COUNT(AUTO) 4.38 MIL/uL (4.20-5.40); RED CELL DISTRIBUTION WIDTH 13.3 % (11.6-13.7); WHITE BLOOD COUNT (AUTO) 11.1 K/uL (4.8-10.8)
[2023-12-28 23:36] LABS: INR 0.85 (0.8-1.2); PARTIAL THROMBOPLASTIN TIME 25.6 secs (22-35.6)
[2023-12-28 23:38] LABS: ALBUMIN 2.6 g/dL (3.4-5.0); ANION GAP 11.5 (8-16); CALCIUM 8.3 mg/dL (8.5-10.1); CARBON DIOXIDE 28.5 mmol/L (21-32); TOTAL BILIRUBIN 0.1 mg/dL (0.0-1.0); TOTAL PROTEIN, SERUM 7.6 g/dL (6.4-8.2)
[2023-12-29 00:45] VITALS: O2SAT 98
[2023-12-29 00:56] VITALS: BP 141/76; PULSE 106; RESP 18; O2SAT 98
[2023-12-29] MEDS ORDERED: CLIN150C1 PO (03:20)
[2023-12-29] MEDS: CLINDAMYCIN 150 MG CAP PO ONE (03:29)
== END 2023-12-29 03:25 | disposition home or self-care (01) ==
LOC: MED 21:40
DX: L03.115 Cellulitis of right lower limb (principal); R22.41 Localized swelling, mass and lump, right lower limb; Z79.899 Other long term (current) drug therapy
CPT/HCPCS: 36415; 80053; 85025; 85610; 85651; 85730; 93971; 99284; Q0092

== ENCOUNTER 2024-04-21 05:45 | Emergency (ER) | payer OTHER ==
[~2024-04-21] VITALS: Ht 167.6 cm; Wt 84.4 kg
[~2024-04-21 05:45] MED LIST changes: +CLIN150C1 PO; +CLON-1202 PO; -CLON1TAB PO
[2024-04-21 06:29] VITALS: BP 127/71; PULSE 68; RESP 18; TEMP 97.6; O2SAT 98
[2024-04-21] MEDS: diphenhydrAMINE 50 MG/ML VIAL IM ONE (07:19)
[2024-04-21] MEDS: PROCHLORPERAZINE 10 MG/2 ML VIAL IM ONE (07:20)
[2024-04-21] MEDS: KETOROLAC 30 MG/ML VIAL IM ONE (07:21)
[2024-04-21] MEDS ORDERED: ACET-8001 PO (07:44)
[2024-04-21 08:21] VITALS: BP 127/79; PULSE 76; RESP 16; TEMP 97.3; O2SAT 98
== END 2024-04-21 08:22 | disposition home or self-care (01) ==
LOC: MED 05:45
DX: G43.909 Migraine, unspecified, not intractable, without status migrainosus (principal); R03.0 Elevated blood-pressure reading, without diagnosis of hypertension; Z79.2 Long term (current) use of antibiotics; Z79.899 Other long term (current) drug therapy; Z79.1 Long term (current) use of non-steroidal anti-inflammatories (NSAID)
CPT/HCPCS: 96372; 99284; J0780; J1200; J1885

== ENCOUNTER 2024-04-23 04:30 | Emergency (ER) | payer OTHER ==
[~2024-04-23] VITALS: Ht 167.6 cm; Wt 90.7 kg
[~2024-04-23 04:30] MED LIST changes: +ACET-8001 PO
[2024-04-23 04:43] VITALS: BP 128/88; PULSE 98; RESP 14; TEMP 97.7; O2SAT 99
[2024-04-23] MEDS: diphenhydrAMINE 50 MG/ML VIAL IVP ONE (05:08)
[2024-04-23] MEDS: KETOROLAC 30 MG/ML VIAL IVP ONE (05:09)
[2024-04-23] MEDS: PROCHLORPERAZINE 10 MG/2 ML VIAL IVP ONE (05:12)
[2024-04-23 05:53] VITALS: BP 142/90; PULSE 97; RESP 18; TEMP 97.8; O2SAT 97
== END 2024-04-23 05:53 | disposition home or self-care (01) ==
LOC: MED 04:30
DX: G43.909 Migraine, unspecified, not intractable, without status migrainosus (principal); H53.149 Visual discomfort, unspecified; R11.0 Nausea; Z79.1 Long term (current) use of non-steroidal anti-inflammatories (NSAID); Z79.2 Long term (current) use of antibiotics; Z79.899 Other long term (current) drug therapy
CPT/HCPCS: 96374; 96375; 99284; J0780; J1200; J1885

== ENCOUNTER 2024-08-18 09:52 | Emergency (ER) | payer OTHER ==
[~2024-08-18] VITALS: Ht 165.1 cm; Wt 91.2 kg
[~2024-08-18 09:52] MED LIST changes: -ACET-10509 PO; +ACET500T99 PO
[2024-08-18 10:03] VITALS: BP 141/88; PULSE 93; RESP 18; TEMP 97.8; O2SAT 97
[2024-08-18] MEDS: MORPHINE SULFATE 4 MG/ML SYR IVP ONE (10:45)
[2024-08-18 11:10] LABS: BILIRUBIN,URINE NEGATIVE (NEGATIVE); BLOOD, URINE 3+ (NEGATIVE); COLOR,URINE YELLOW (YELLOW); LEUKOCYTE ESTERASE ,URINE 2+ (NEGATIVE); NITRITE, URINE POSITIVE (NEGATIVE); PROTEIN,URINE 2+ (NEGATIVE); UGLUCOSE NEGATIVE (NEGATIVE); UROBILINOGEN,URINE 0.2 EU/dL (0.2 - 1)
[2024-08-18 11:11] LABS: APPEARANCE,URINE HAZY (CLEAR)
[2024-08-18 11:14] LABS: BASOPHILS # (AUTO) 0.1 K/uL (0.00-0.22); BASOPHILS % (AUTO) 0.8 % (0.0-2.0); EOSINOPHILS # (AUTO) 0.2 K/uL (0-0.4); EOSINOPHILS % (AUTO) 1.7 % (0.0-4.0); HEMATOCRIT 38.1 % (36-48); HEMOGLOBIN 12.9 g/dL (12.0-16.0); LYMPHOCYTES # (AUTO) 3.3 K/uL (2.5-16.5); LYMPHOCYTES % (AUTO) 25.2 % (20.5-51.1); MEAN CORPUSCULAR HEMOGLOBIN 30 pg (27-31); MEAN CORPUSCULAR HGB CONC 34 g/dL (33-37); MEAN CORPUSCULAR VOLUME 88.5 fL (80-94); MONOCYTES % (AUTO) 7.5 % (1.7-9.3); NEUTROPHILS # (AUTO) 8.4 K/uL (1.8-7.7); NEUTROPHILS % (AUTO) 64.8 % (42.2-75.2); PLATELET COUNT (AUTO) 260 K/uL (140-450); RED CELL DISTRIBUTION WIDTH 13.3 % (11.6-13.7); WHITE BLOOD COUNT (AUTO) 12.9 K/uL (4.8-10.8)
[2024-08-18 11:17] LABS: RBC,URINE 20-50 /HPF (0-5); WBC,URINE 60-80 /HPF (0-5)
[2024-08-18 11:19] LABS: BACTERIA,URINE FEW /HPF (None Seen); SQUAMOUS EPITHELIAL CELL,UR 0-3 (FEW) /LPF (0-3 (FEW))
[2024-08-18 11:29] LABS: ANION GAP 9.8 (8-16); CARBON DIOXIDE 29.1 mmol/L (21-32); CREATININE 1.1 mg/dL (0.6-1.3); POTASSIUM 3.9 mmol/L (3.5-5.1)
[2024-08-18 11:36] LABS: ALBUMIN 3.5 g/dL (3.4-5.0); BILIRUBIN,DIRECT 0.1 mg/dL (0.0-0.3); TOTAL BILIRUBIN 0.3 mg/dL (0.0-1.0); TOTAL PROTEIN, SERUM 7.6 g/dL (6.4-8.2)
[2024-08-18 11:39] VITALS: BP 145/60; PULSE 84; RESP 20; TEMP 98.2; O2SAT 98
[2024-08-18] MEDS ORDERED: CEFP200T20 PO (12:51)
[2024-08-18] MEDS ORDERED: IBUP-2213 PO (12:51)
[2024-08-18] MEDS ORDERED: cefTRIAXone 1,000 MG VIAL ONE (13:15)
== END 2024-08-18 13:52 | disposition home or self-care (01) ==
LOC: MED 09:52
DX: N39.0 Urinary tract infection, site not specified (principal); N20.0 Calculus of kidney; Z79.899 Other long term (current) drug therapy
CPT/HCPCS: 36415; 74176; 76856; 80048; 80076; 81001; 81025; 83690; 85025; 87086; 87186; 93976; 96365; 96375; 99285; J0696; J2270; Q0092